=== PATIENT | male | born 1945 | race Caucasian/White ===

== ENCOUNTER 2017-06-28 18:20 | Emergency (ER) | payer OTHER, MEDICAID ==
--- NOTE | 2017-06-28 18:31 | EDPHY ---
H & P Time Seen by Provider: 06/28/17 18:24 HPI/ROS: CHIEF COMPLAINT: Altered mental status, can't walk HISTORY OF PRESENT ILLNESS: Patient was pulled off the bus after admitting to alcohol, altered, could not walk. Denies suicidal ideation or overdose to me. Admits to alcohol. No medical complaints. REVIEW OF SYSTEMS: Eye: no change in vision ENT: no sore throat Cardiac: no chest pain or syncope Pulmonary: no cough or SOB Abdomen: no vomiting, diarrhea, abdominal pain Musculoskeletal: no back pain Skin: no rash Neuro: no headache, generalized weakness Constitutional: no fever : no urinary symptoms A comprehensive 10 point review of systems is otherwise negative aside from elements mentioned in the history of present illness. PAST MEDICAL HISTORY: History and physical dated 11/26/2014 personally reviewed includes PTSD, depression, alcohol Social history: Recent vodka General Appearance: Alert and conversant, cooperative. Eyes: No scleral icterus. ENT, Mouth: Normal mucous membranes. No external evidence of head trauma and no tongue laceration or abrasion. Respiratory: Normal respiratory effort, breath sounds equal, lungs are clear to auscultation. Cardiovascular: Regular rate and rhythm. Gastrointestinal: Abdomen is soft and non tender. Neurological: Alert and oriented x3. Slurred speech Face symmetric, normal movement and sensation in all extremities. Skin: Warm and dry, no rashes. Musculoskeletal: No peripheral edema and no joint swelling. Psychiatric: Not agitated. Emergency Department course/MDM: Patient presents alcohol intoxication. Plan for Chem 7 ethanol level and serial exam. 1946: Glucose 90, sodium 140, alcohol 332. Plan for serial observation and then discharge to detox. 2051: Ambulatory, no medical complaints, not ataxic. Stable for discharge. Smoking Status: Current every day smoker Constitutional: Initial Vital Signs Temperature (C) 37.1 C 06/28/17 18:31 Heart Rate 94 06/28/17 18:31 Respiratory Rate 16 06/28/17 18:31 Blood Pressure 102/64 06/28/17 18:31 O2 Sat (%) 92 06/28/17 18:31 O2 Delivery Mode Room Air Allergies/Adverse Reactions: Sulfa (Sulfonamide Antibiotics) Allergy (Severe, Verified 10/11/13 22:54) Other-Enter Comments Home Medications: Medication Instructions Recorded Zoloft 01/03/15 Medical Decision Making Differential Diagnosis: Differential did including but not limited to alcohol ingestion, stroke or seizure, toxic or metabolic. - Data Points Laboratory Results: Laboratory Results 06/28/17 18:31 06/28/17 18:31 Sodium 140 mEq/L mEq/L (134-144) Potassium 4.0 mEq/L mEq/L (3.5-5.2) Chloride 102 mEq/L mEq/L (97-110) Carbon Dioxide 15 mEq/l L mEq/l (22-31) Anion Gap 23 mEq/L H mEq/L (8-16) BUN 17 mg/dL mg/dL (7-23) Creatinine 1.1 mg/dL mg/dL (0.7-1.3) Estimated GFR > 60 Glucose 91 mg/dL mg/dL (70-100) Calcium 9.0 mg/dL mg/dL (8.5-10.4) Ethyl Alcohol 332 mg/dL H mg/dL (0-10) Departure - Departure Disposition: Home, Routine, Self-Care Clinical Impression: Alcoholic intoxication Qualifiers: Complication of substance-induced condition: uncomplicated Qualified Code(s): F10.920 - Alcohol use, unspecified with intoxication, uncomplicated Condition: Good Instructions: Alcohol Intoxication (ED) Referrals: Patient,NotPresent [Unknown] - As per Instructions [facility],. [Clinic] - As per Instructions
[2017-06-28 18:36] VITALS: RESP 16; TEMP 98.8; O2SAT 92
[2017-06-28 22:32] VITALS: BP 118/69; PULSE 73
== END 2017-06-28 22:30 | disposition home or self-care (01) ==
LOC: EDUNIT#
DX: F10.920 Alcohol use, unspecified with intoxication, uncomplicated (principal); F17.200 Nicotine dependence, unspecified, uncomplicated
CPT/HCPCS: G0480

== ENCOUNTER 2017-07-01 17:39 | Emergency (ER) | payer OTHER, MEDICAID ==
--- NOTE | 2017-07-01 17:42 | EDPHY ---
H & P Time Seen by Provider: 07/01/17 17:42 HPI/ROS: HPI: This is a 71-year-old male presents with Chief Complaint: Dizziness after taking alcohol and Zoloft Location: Head Quality: Dizziness Duration: 1-2 hours ago Signs and Symptoms: No fever, no chest pain, no shortness of breath, no nausea , no vomiting, no neck stiffness, no room spinning Timing: Sudden Severity: Moderate Context: Patient reports that he drank a pint of Bacardi today and took a Zoloft which is not a new medication for him approximately 1-2 hours prior to arrival in the emergency room. Patient reports within 30 minutes to 1 hour of taking his Zoloft; he began to feel extremely lightheaded. He denies that the room is spinning. He did not fall or have a head injury. Patient got scared and called EMS. Patient has not ate anything today has only drank alcohol. Modifying Factors: None Comment: ROS: see HPI Constitutional: No fever, no chills, no weight loss Eyes: No blurred vision Respiratory: No shortness of breath, no cough Cardiovascular: No chest pain Gastrointestinal: No nausea, no vomiting, no diarrhea Genitourinary: No dysuria Extremities: No myalgias Neurologic: No weakness, no numbness Skin: No rashes Hematologic: No bruising, no bleeding MEDICAL/SURGICAL/SOCIAL HISTORY: Medical history: PTSD, ADHD, hernia repairs, hydrocele, clavicle pinned L, DEPRESSION, DUoDENAL ULCER, H PYLORI, ALCOHOLISM Surgical history: Hernia repair Social history: Unemployed CONSTITUTIONAL: Elderly white male, well-appearing, smells like alcohol, awake and alert, no obvious distress HEENT: Atraumatic and normocephalic, PERRL, EOMI. Tympanic membranes clear. Oropharynx clear, missing dentition, no exudate and moist pink mucosa. Airway patent. No lymphadenopathy. No meningismus. Cardiovascular: Normal S1/S2, regular rate, regular rhythm, without murmur rub or gallop. PULMONARY/CHEST: Symmetrical and nontender. Clear to auscultation bilaterally. Good air movement. No accessory muscle usage. ABDOMEN: Soft, nondistended, nontender, no rebound, no guarding, no peritoneal signs, no masses or organomegaly. No CVAT. EXTREMITIES: 2/2 pulses, strength 5/5, no deformities, no clubbing, no cyanosis or edema. NEUROLOGICAL: no focal neuro deficits. GCS 15. SKIN: Warm and dry, no erythema. no rash. Good capillary refill. Source: Patient Exam Limitations: No limitations - Medical/Surgical History Hx Asthma: No Hx Chronic Respiratory Disease: No Hx Diabetes: No Hx Cardiac Disease: No Hx Renal Disease: No Hx Cirrhosis: No Hx Alcoholism: No Hx HIV/AIDS: No Hx Splenectomy or Spleen Trauma: No Other PMH: PTSD, ADHD, hernia repairs, hydrocele, clavicle pinned L, DEPRESSION , DUADENAL ULCER, H PYLORI, ALCOHOLISM - Social History Smoking Status: Current every day smoker Constitutional: Initial Vital Signs Temperature (C) 36.8 C 07/01/17 17:39 Heart Rate 70 07/01/17 17:39 Respiratory Rate 18 07/01/17 17:39 Blood Pressure 174/90 H 07/01/17 17:39 O2 Sat (%) 94 07/01/17 17:39 O2 Delivery Mode Room Air O2 (L/minute) 2 Allergies/Adverse Reactions: Sulfa (Sulfonamide Antibiotics) Allergy (Severe, Verified 07/01/17 17:45) Other-Enter Comments Home Medications: Medication Instructions Recorded Zoloft 01/03/15 ADDERALL 15 MG TABLET 07/01/17 Medical Decision Making Procedures: 12 lead EKG: Indication: Dizziness Rhythm: Normal sinus rhythm, rate 66 beats per minute [place]: Normal Intervals: Normal QRS: Normal ST segments: Normal INTERPRETATION: No acute ischemic changes The 12 lead EKG was interpreted by myself and with attending. ED Course/Re-evaluation: EKG, labs, orthostatics, IV fluids ordered Afebrile and no systemic signs. Suspect hypovolemia combined with medication and alcohol use. Patient is tolerating oral intake upon arrival to the ER. 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 Labs reviewed an EtOH 43; approximately 1 and 0.5 hours after being in the ER patient starts having dry heaves and shakiness; given IV Ativan 1 mg and p.o. Librium and within 30 minutes CIWA scale equals 1 Mild leukocytosis, with hyponatremia and hypochloremia secondary to hypovolemia. Given fluids tolerating p.o. intake at discharge After 5 hours in emergency room in patient is sleeping 3 of the 5 hours, Patient is able to walk on his own without assistance. He will be discharged to the [facility] with Librium prepack. No signs of DTs or withdrawal seizures during entire ER visit. Differential Diagnosis: Dizziness including but not limited to peripheral and central causes of vertigo , orthostatic causes including dehydration, and blood loss. - Data Points Laboratory Results: Laboratory Results 07/01/17 18:10 07/01/17 18:10 07/01/17 07/01/17 18:10 18:10 WBC 12.77 10^3/uL H 10^3/uL (3.80-9.50) RBC 4.34 10^6/uL L 10^6/uL (4.40-6.38) Hgb 13.4 g/dL L g/dL (13.7-17.5) Hct 37.4 % L % (40.0-51.0) MCV 86.2 fL fL (81.5-99.8) MCH 30.9 pg pg (27.9-34.1) MCHC 35.8 g/dL g/dL (32.4-36.7) RDW 12.8 % % (11.5-15.2) Plt Count 283 10^3/uL 10^3/uL (150-400) MPV 10.1 fL fL (8.7-11.7) Neut % (Auto) 67.1 % % (39.3-74.2) Lymph % (Auto) 22.6 % % (15.0-45.0) Stearns % (Auto) 9.3 % % (4.5-13.0) Eos % (Auto) 0.3 % L % (0.6-7.6) Baso % (Auto) 0.2 % L % (0.3-1.7) Nucleat RBC Rel Count 0.0 % % (0.0-0.2) Absolute Neuts (auto) 8.56 10^3/uL H 10^3/uL (1.70-6.50) Absolute Lymphs (auto) 2.88 10^3/uL 10^3/uL (1.00-3.00) Absolute Monos (auto) 1.19 10^3/uL H 10^3/uL (0.30-0.80) Absolute Eos (auto) 0.04 10^3/uL 10^3/uL (0.03-0.40) Absolute Basos (auto) 0.03 10^3/uL 10^3/uL (0.02-0.10) Absolute Nucleated RBC 0.00 10^3/uL 10^3/uL (0-0.01) Immature Gran % 0.5 % % (0.0-1.1) Immature Gran # 0.07 10^3/uL 10^3/uL (0.00-0.10) Sodium 131 mEq/L L mEq/L (134-144) Potassium 3.9 mEq/L mEq/L (3.5-5.2) Chloride 92 mEq/L L D mEq/L (97-110) Carbon Dioxide 21 mEq/l L D mEq/l (22-31) Anion Gap 18 mEq/L H mEq/L (8-16) BUN 8 mg/dL mg/dL (7-23) Creatinine 0.7 mg/dL mg/dL (0.7-1.3) Estimated GFR > 60 Glucose 92 mg/dL mg/dL (70-100) Calcium 9.0 mg/dL mg/dL (8.5-10.4) Troponin I 0.016 ng/mL ng/mL (0.000-0.034) Ethyl Alcohol 43 mg/dL H mg/dL (0-10) Medications Given: Discontinued Medications Chlordiazepoxide HCl (Librium) 25 mg PO EDNOW ONE Stop: 07/01/17 18:51 Last Admin: 07/01/17 18:57 Dose: 25 mg Sodium Chloride (Ns) 1,000 mls @ 0 mls/hr IV EDNOW ONE; Wide Open PRN Reason: Protocol Stop: 07/01/17 17:51 Last Admin: 07/01/17 18:09 Dose: 1,000 mls Sodium Chloride (Ns) 1,000 mls @ 0 mls/hr IV EDNOW ONE; Wide Open PRN Reason: Protocol Stop: 07/01/17 19:27 Last Admin: 07/01/17 19:33 Dose: 1,000 mls Lorazepam (Ativan Injection) 1 mg IVP EDNOW ONE Stop: 07/01/17 19:33 Last Admin: 07/01/17 19:33 Dose: 1 mg Ondansetron HCl (Zofran) 4 mg IVP EDNOW ONE Stop: 07/01/17 18:24 Last Admin: 07/01/17 18:38 Dose: 4 mg Ondansetron HCl (Zofran) 4 mg IVP EDNOW ONE Stop: 07/01/17 19:30 Last Admin: 07/01/17 19:32 Dose: 4 mg Departure - Departure Disposition: Other Psych, Not [place] Clinical Impression: Alcohol abuse, Dizziness Medication side effect Qualifiers: Encounter type: initial encounter Qualified Code(s): T88.7XXA - Unspecified adverse effect of drug or medicament, initial encounter Condition: Good Instructions: Abuse of Alcohol (ED) Additional Instructions: Please avoid drinking alcohol and taking regular medications at the same time. Referrals: [facility] [Outside] - As per Instructions
[2017-07-01 17:46] VITALS: TEMP 98.2
[2017-07-01] MEDS ORDERED: NS 1,000 ML IV ONE ×2 (17:50→19:26)
--- NOTE | 2017-07-01 18:01 | CPEKG ---
Heart Rate: 66 RR Interval: 909 P-R Interval: 116 QRSD Interval: 100 QT Interval: 456 QTC Interval: 478 P [place]: -76 QRS [place]: 6 T Wave [place]: 35 EKG Severity - BORDERLINE ECG - EKG Impression: SINUS OR ECTOPIC ATRIAL RHYTHM EKG Impression: BORDERLINE PROLONGED QT INTERVAL Electronically Signed By: Homero Bower 04-Jul-2017 17:09:38
--- NOTE | 2017-07-01 18:01 | CPEKG ---
Heart Rate: 66 RR Interval: 909 P-R Interval: 116 QRSD Interval: 100 QT Interval: 456 QTC Interval: 478 P [place]: -76 QRS [place]: 6 T Wave [place]: 35 EKG Severity - BORDERLINE ECG - EKG Impression: SINUS OR ECTOPIC ATRIAL RHYTHM EKG Impression: BORDERLINE PROLONGED QT INTERVAL Electronically Signed By: Homero Bower 04-Jul-2017 17:09:38
[2017-07-01 18:18] LABS: PLATELET COUNT 283 10^3/uL (150-400)
[2017-07-01] MEDS ORDERED: ONDANSETRON 4 MG/2 ML VIAL IVP ONE ×2 (18:23→19:29)
[2017-07-01] MEDS ORDERED: chlordiazePOXIDE 25 MG CAP PO ONE (18:50)
[2017-07-01] MEDS ORDERED: LORazepam 2 MG/ML INJ ONE (19:31)
[2017-07-01] MEDS ORDERED: LORazepam 2 MG/ML INJ IVP ONE (19:32)
[2017-07-01] MEDS ORDERED: CHLORDIAZEPOXIDE 25MG PREPK#6 BTL TAKEHOME ONE (20:10)
[2017-07-01 23:12] VITALS: RESP 16
[2017-07-02] MEDS ORDERED: chlordiazePOXIDE 25 MG CAP PO SCH
[2017-07-02 01:12] VITALS: BP 105/52; PULSE 60; O2SAT 95
== END 2017-07-02 00:45 ==
LOC: EDUNIT#
DX: R42 Dizziness and giddiness (principal); T43.225A Adverse effect of selective serotonin reuptake inhibitors, initial encounter; F10.10 Alcohol abuse, uncomplicated; E86.9 Volume depletion, unspecified; F17.200 Nicotine dependence, unspecified, uncomplicated
CPT/HCPCS: 93005; 96361; 96374; 96375; 96376; 99285; J2060; J2405; G0480

== ENCOUNTER 2017-07-07 17:20 | Emergency (ER) | payer OTHER, MEDICAID ==
--- NOTE | 2017-07-07 17:44 | EDPHY ---
H & P Time Seen by Provider: 07/07/17 17:32 HPI/ROS: CHIEF COMPLAINT: Alcohol intoxication HISTORY OF PRESENT ILLNESS: Patient was brought in by EMS after he flagged down a passerby. He admits to vodka but could not stand or walk. He has no medical complaints. Seen 06/28 and 07/01 for same REVIEW OF SYSTEMS: Eye: no change in vision ENT: no sore throat Cardiac: no chest pain or syncope Pulmonary: no cough or SOB Abdomen: no vomiting, diarrhea, abdominal pain Musculoskeletal: no back pain, denies fall or trauma Skin: no rash Neuro: no headache Constitutional: no fever : no urinary symptoms A comprehensive 10 point review of systems is otherwise negative aside from elements mentioned in the history of present illness. PAST MEDICAL HISTORY: Alcoholism Social history: Recent alcohol General Appearance: Sleepy but answers questions, responds to voice. Eyes: No scleral icterus. ENT, Mouth: Normal mucous membranes. Respiratory: Normal respiratory effort, breath sounds equal, lungs are clear to auscultation. Cardiovascular: Regular rate and rhythm. Gastrointestinal: Abdomen is soft and non tender. Neurological: Alert and oriented x3. Answers questions appropriately. Face symmetric, normal movement and sensation in all extremities. Skin: Warm and dry, no rashes. Musculoskeletal: No peripheral edema and no joint swelling. Psychiatric: Not agitated. Emergency Department course/MDM: Pre-hospital glucose was normal. Plan for serial exams as his clinical presentation is consistent with his history of vodka ingestion. I think it is unlikely he has other metabolic abnormality, subdural or epidural , seizure, stroke. 2002: ambulatory but still unsteady. No medical complaints. 2100: signed out to [facility] plan to send to detox when sober. Smoking Status: Current every day smoker Constitutional: Initial Vital Signs Temperature (C) 36.9 C 07/07/17 17:25 Heart Rate 72 07/07/17 17:25 Respiratory Rate 16 07/07/17 17:25 Blood Pressure 114/61 07/07/17 17:25 O2 Sat (%) 98 07/07/17 17:25 O2 Delivery Mode Nasal Cannula O2 (L/minute) 4 Allergies/Adverse Reactions: Sulfa (Sulfonamide Antibiotics) Allergy (Severe, Verified 07/01/17 17:45) Other-Enter Comments Home Medications: Medication Instructions Recorded Zoloft 01/03/15 ADDERALL 15 MG TABLET 07/01/17 chlordiazePOXIDE [Librium 25 mg 25 mg PO TID #6 cap 07/02/17 (*)] Medical Decision Making Differential Diagnosis: Differential diagnosis considered for altered mental status including but not limited to hypoglycemia, infectious process, electrolyte abnormality, head injury and intoxicants. - Data Points Medications Given: Discontinued Medications Ondansetron HCl (Zofran Odt) 4 mg PO EDNOW ONE Stop: 07/07/17 20:05 Last Admin: 07/07/17 20:07 Dose: 4 mg Departure - Departure Disposition: Home, Routine, Self-Care Clinical Impression: Alcoholic intoxication Qualifiers: Complication of substance-induced condition: uncomplicated Qualified Code(s): F10.920 - Alcohol use, unspecified with intoxication, uncomplicated Condition: Good Instructions: Alcohol Intoxication (ED) Referrals: [facility],. [Clinic] - As per Instructions
[2017-07-07] MEDS ORDERED: ONDANSETRON DISINTEGRATING 4 MG TAB ONE (20:02)
[2017-07-07] MEDS ORDERED: ONDANSETRON DISINTEGRATING 4 MG TAB PO ONE (20:04)
[2017-07-07 22:15] VITALS: BP 116/68; PULSE 96; RESP 16; TEMP 97.5; O2SAT 90
== END 2017-07-07 22:13 | disposition home or self-care (01) ==
LOC: EDUNIT#
DX: F10.920 Alcohol use, unspecified with intoxication, uncomplicated (principal); F17.200 Nicotine dependence, unspecified, uncomplicated

== ENCOUNTER 2017-07-09 18:59 | Emergency (ER) | payer OTHER, MEDICAID ==
[2017-07-09] MEDS ORDERED: ONDANSETRON DISINTEGRATING 4 MG TAB PO ONE (19:09)
--- NOTE | 2017-07-09 19:13 | EDPHY ---
General - History Smoking Status: Current every day smoker Narrative: PHYSICIAN DOCUMENTATION: The patient was evaluated and managed by the Physician Oracle Database Architect. My co- signature indicates that I have reviewed this chart and I agree with the findings and plan of care as documented. I am the secondary supervising physician. (Jerry Grady) CHIEF COMPLAINT: Alcohol intoxication, nausea vomiting HISTORY OF PRESENT ILLNESS: [facility] with reports of vomiting and alcohol ingestion. He reportedly was trying to go to the homeless senior living but he vomited, thus they sent him here. He admits to drinking 2 pt of vodka today, which is his normal daily intake. He says he felt nauseated and vomited once but does not feel as I was going to vomit at this time. He has no chest pain. He has not fallen. No headache. No neck pain. No abdominal complaints. He has no complaints of any kind at this time. No other associated complaints or modifying factors. REVIEW OF SYSTEMS: Ten systems reviewed and are negative unless otherwise noted in the HPI PCP: [facility] SPECIALISTS: None PAST MEDICAL HISTORY: Alcoholism PAST SURGICAL HISTORY: None recently SOCIAL HISTORY: Nonsmoker. Daily drinker, 2-3 pt of vodka FAMILY HISTORY: Noncontributory EXAMINATION General Appearance: Alert, no distress Head: normocephalic, atraumatic Eyes: Pupils equal and round, no conjunctival pallor or injection ENT, Mouth: Mucous membranes moist. Airway widely patent. Poor dentition Neck: Normal inspection, supple, non-tender Respiratory: No retractions or distress. Cardiovascular: Regular rate. Pulses intact distally symmetrically with radial pulses 2+ and DP pulses 2+ Gastrointestinal: Abdomen is soft and nontender. No distention. No tympany. Neurological: GCS 15. A&O, nonfocal, strength is symmetric in all 4 limbs. Normal [id number] Skin: Warm and dry, no rash. No petechiae or purpura. No lacerations Extremities: Nontender, no pedal edema. Moving all 4 extremities spontaneously Psychiatric: Mood and affect normal DIFFERENTIAL DIAGNOSES: Including but not limited to acute alcohol intoxication, gastritis, alcoholic gastritis, nausea vomiting, dehydration MDM: 7:10 p.m. Suspected acute alcohol intoxication with episode of vomiting. No vomiting. Vital signs are within normal limits palpable breath alcohol test and administer Zofran. Patient will be ambulated when able. Plan for transfer to the [facility] when sober. 8:10 p.m. Patient is sleeping but wakes easily. He is in no acute distress. Still not fully ambulatory. 9:10 p.m. Patient is now ambulated to the restroom without assistance. He is awake and alert. He is conversing in her normal manner. I do feel he is stable for discharge to the [facility]. He is agreeable to this plan. He will be discharged in stable condition. (Ezra España) - Objective Vital Signs: Initial Vital Signs Temperature (C) 98.6 F 07/09/17 19:22 Heart Rate 80 07/09/17 19:22 Respiratory Rate 16 07/09/17 19:22 Blood Pressure 112/65 07/09/17 19:22 O2 Sat (%) 98 07/09/17 19:22 O2 Delivery Mode Room Air Allergies/Adverse Reactions: Sulfa (Sulfonamide Antibiotics) Allergy (Severe, Verified 07/09/17 19:17) Other-Enter Comments Home Medications: Medication Instructions Recorded Zoloft 01/03/15 ADDERALL 15 MG TABLET 07/01/17 chlordiazePOXIDE [Librium 25 mg 25 mg PO TID #6 cap 07/02/17 (*)] Medications Given: Discontinued Medications Ondansetron HCl (Zofran Odt) 4 mg PO EDNOW ONE Stop: 07/09/17 19:10 Last Admin: 07/09/17 19:29 Dose: 4 mg Departure - Departure Disposition: Home, Routine, Self-Care Clinical Impression: Nausea Alcoholic intoxication Qualifiers: Complication of substance-induced condition: uncomplicated Qualified Code(s): F10.920 - Alcohol use, unspecified with intoxication, uncomplicated Condition: Good Instructions: Gastritis (ED), Alcohol Intoxication (ED), Abuse of Alcohol (ED) Referrals: [facility],. [Clinic] - As per Instructions Diego Zepeda MD [Medical Doctor] - As per Instructions Unknown,Unknown [Primary Care Provider] - As per Instructions
[2017-07-09 19:25] VITALS: RESP 16
[2017-07-09] MEDS ORDERED: CHLORDIAZEPOXIDE 25MG PREPK#6 BTL TAKEHOME ONE (21:18)
[2017-07-09 22:03] VITALS: BP 115/65; PULSE 82; TEMP 98.6; O2SAT 94
== END 2017-07-09 21:59 | disposition home or self-care (01) ==
LOC: EDUNIT#
DX: F10.920 Alcohol use, unspecified with intoxication, uncomplicated (principal); R11.0 Nausea; F17.200 Nicotine dependence, unspecified, uncomplicated